=== PATIENT | female | born 1995 | race Caucasian/White ===

== ENCOUNTER 2017-09-30 10:47 | Outpatient (CLI) | payer BC ==
[2017-09-30 12:54] LABS: APPEARANCE,URINE SLIGHTLY-CLOUDY; BILIRUBIN,URINE NEGATIVE (NEGATIVE); COLOR,URINE YELLOW; GLUCOSE, URINE NEGATIVE (NEGATIVE); KETONES,URINE TRACE mg/dL (NEGATIVE); LEUKOCYTE ESTERASE,URINE MODERATE (NEGATIVE); NITRITE,URINE NEGATIVE (NEGATIVE); PROTEIN,URINE NEGATIVE (NEGATIVE); URINE SPECIFIC GRAVITY 1.006; UROBILINOGEN,URINE NEGATIVE mg/dL (<2.0)
[2017-09-30 13:15] LABS: URINE AMPHETAMINES SCREEN NEGATIVE; URINE BARBITURATES SCREEN NEGATIVE; URINE BENZODIAZEPINES SCREEN NEGATIVE; URINE COCAINE SCREEN NEGATIVE; URINE MARIJUANA (THC) SCREEN NEGATIVE; URINE METHADONE SCREEN NEGATIVE; URINE PHENCYCLIDINE SCREEN NEGATIVE
--- NOTE | 2017-09-30 13:28 | RADIOLOGY REPORT (SQ) ---
EXAM DESCRIPTION: U/S OB LIMITED COMPLETED DATE/TIME: 09/30/2017 1:01 pm REASON FOR STUDY: need cervical length, presentation, ANNY/SDP COMPARISON: None. TECHNIQUE: Limited transvaginal and transabdominal grayscale ultrasound for evaluation of specific r equested obstetrical parameters. LIMITATIONS: None. FINDINGS: CERVICAL LENGTH: 5.3 cm. Closed. ANNY: 16.4 cm. FHR: 133 beats per minute. PRESENTATION: Cephalic. OTHER: No other significant findings. IMPRESSION: LIMITED OBSTETRICAL ULTRASOUND WITH MEASURED PARAMETERS DELINEATED ABOVE. Trimester of : Third trimester - 28 weeks to delivery. TECHNICAL DOCUMENTATION: JOB ID: [id number] [employer]- All Rights Reserved Reading location - IP/workstation name: [email or web address]
== END 2017-09-30 13:21 | disposition home or self-care (01) ==
LOC: LC 10:47
PROVIDERS: ATTEND Student in an Organized Health Care Education/Training Program
PROC: 4A1HXCZ Monitoring of Products of Conception, Cardiac Rate, External Approach (ICD-10-PCS; principal; 2017-09-30)
DX: O24.419 Gestational diabetes mellitus in pregnancy, unspecified control (principal); Z3A.32 32 weeks gestation of pregnancy
CPT/HCPCS: 59025; 76815; 80307; 81001; 87086

== ENCOUNTER 2017-10-07 21:34 | Outpatient (CLI) | payer BC ==
--- NOTE | 2017-10-07 21:41 | Non Stress Test Report ---
Non Stress Test Datetime Report Generated by CPN: 10/07/2017 21:41 DEMOGRAPHIC EGA NST: 32.6 INDICATION Indication for Study: Ordered by Provider Indication for Study (NST) Other: GDM MONITORING Monitor Explained: Monitor Explained; Test Explained; Patient Verbalized Understanding Time on Monitor: 09/30/2017 11:11 Time off Monitor: 09/30/2017 12:36 NST Duration: 85 NST INTERVENTIONS NST Interventions: PO Hydration Physician Notified NST: Dr. Carbone BABY A: [id number] BABY A Movement : Present Contraction Frequency : 3-5 FHR Baseline : 135 Accelerations : 15X15 Decelerations : None Variability : Moderate 6-25bpm NST Review: Meets Criteria for Reactive NST NST Review and Verified By : Bandar Bellavancnydia RNC NST Results: Reactive NST REPORT Report Trigger: Send Report
[2017-10-07 22:17] LABS: APPEARANCE,URINE SLIGHTLY-CLOUDY; BILIRUBIN,URINE NEGATIVE (NEGATIVE); COLOR,URINE YELLOW; GLUCOSE, URINE NEGATIVE (NEGATIVE); KETONES,URINE NEGATIVE (NEGATIVE); LEUKOCYTE ESTERASE,URINE LARGE (NEGATIVE); NITRITE,URINE NEGATIVE (NEGATIVE); PROTEIN,URINE NEGATIVE (NEGATIVE); URINE SPECIFIC GRAVITY 1.009; UROBILINOGEN,URINE NEGATIVE mg/dL (<2.0)
[2017-10-07 22:24] LABS: URINE AMPHETAMINES SCREEN NEGATIVE; URINE BARBITURATES SCREEN NEGATIVE; URINE BENZODIAZEPINES SCREEN NEGATIVE; URINE COCAINE SCREEN NEGATIVE; URINE MARIJUANA (THC) SCREEN NEGATIVE; URINE METHADONE SCREEN NEGATIVE; URINE PHENCYCLIDINE SCREEN NEGATIVE
== END 2017-10-07 23:19 | disposition home or self-care (01) ==
LOC: LC 21:34
PROVIDERS: ATTEND Obstetrics & Gynecology Gynecology
PROC: 4A1HXCZ Monitoring of Products of Conception, Cardiac Rate, External Approach (ICD-10-PCS; principal; 2017-10-07)
DX: O24.419 Gestational diabetes mellitus in pregnancy, unspecified control (principal); Z3A.32 32 weeks gestation of pregnancy
CPT/HCPCS: 59025; 80307; 81001

== ENCOUNTER 2017-10-13 11:33 | Outpatient (CLI) | payer BC ==
--- NOTE | 2017-10-13 11:41 | Non Stress Test Report ---
Non Stress Test Datetime Report Generated by CPN: 10/13/2017 11:41 DEMOGRAPHIC EGA NST: 33.6 INDICATION Indication for Study: Ordered by Provider URINE RESULTS Urine Protein, NST: Negative Urine Ketones - NST: Negative Urine Glucose - NST: Negative Urine Blood - NST: Negative MONITORING Monitor Explained: Monitor Explained; Test Explained; Patient Verbalized Understanding Time on Monitor: 10/07/2017 21:51 Time off Monitor: 10/07/2017 23:13 NST Duration: 82 NST INTERVENTIONS NST Interventions: PO Hydration Physician Notified NST: Dr. Chew BABY A: [id number] BABY A Movement : Present Contraction Frequency : Occasional FHR Baseline : 125 Accelerations : 15X15 Decelerations : None Variability : Moderate 6-25bpm NST Review: Meets Criteria for Reactive NST NST Review and Verified By : Kaelyn Mejia RN NST Results: Reactive NST REPORT Report Trigger: Send Report
== END 2017-10-13 12:22 | disposition home or self-care (01) ==
LOC: LC 11:33
PROVIDERS: ATTEND Obstetrics & Gynecology Gynecology
PROC: 4A1HXCZ Monitoring of Products of Conception, Cardiac Rate, External Approach (ICD-10-PCS; principal; 2017-10-13)
DX: Z34.93 Encounter for supervision of normal pregnancy, unspecified, third trimester (principal)
CPT/HCPCS: 59025

== ENCOUNTER 2017-10-20 10:28 | Outpatient (CLI) | payer BC ==
--- NOTE | 2017-10-20 11:19 | Non Stress Test Report ---
Non Stress Test Datetime Report Generated by CPN: 10/20/2017 11:19 DEMOGRAPHIC EGA NST: 35.5 EGA NST: 34.5 INDICATION Indication for Study: Ordered by Provider Indication for Study: Diabetes Mellitus; Ordered by Provider Indication for Study (NST) Other: Repeat NST MONITORING Monitor Explained: Monitor Explained; Test Explained; Patient Verbalized Understanding Monitor Explained: Monitor Explained; Test Explained; Patient Verbalized Understanding Time on Monitor: 10/20/2017 10:46 Time on Monitor: 10/13/2017 11:45 Time off Monitor: 10/13/2017 11:14 Time off Monitor: 10/13/2017 12:10 NST Duration: -68029 NST Duration: 25 NST INTERVENTIONS NST Interventions: PO Hydration; Reposition Patient NST Interventions: PO Hydration; Reposition Patient Physician Notified NST: Tanja Thornton CNNacho Physician Notified NST: Wanda Macodnald CNM BABY A: [id number] BABY A Movement : Present Movement : Present Contraction Frequency : none Contraction Frequency : irregular FHR Baseline : 125 FHR Baseline : 130 Accelerations : 15X15 Accelerations : 15X15 Decelerations : None Decelerations : None Variability : Moderate 6-25bpm Variability : Moderate 6-25bpm NST Review: Meets Criteria for Reactive NST NST Review: Meets Criteria for Reactive NST NST Review and Verified By : Bandar Topete RNC NST Review and Verified By : April Abreu RN NST Results: Reactive NST Results: Reactive NST REPORT Report Trigger: Send Report
== END 2017-10-20 11:24 | disposition home or self-care (01) ==
LOC: LC 10:28
PROVIDERS: ATTEND Obstetrics & Gynecology Gynecology
PROC: 4A1HXCZ Monitoring of Products of Conception, Cardiac Rate, External Approach (ICD-10-PCS; principal; 2017-10-20)
DX: O24.415 Gestational diabetes mellitus in pregnancy, controlled by oral hypoglycemic drugs (principal); Z3A.35 35 weeks gestation of pregnancy
CPT/HCPCS: 59025

== ENCOUNTER 2017-10-27 14:35 | Outpatient (CLI) | payer BC ==
--- NOTE | 2017-10-27 15:09 | Non Stress Test Report ---
Non Stress Test Datetime Report Generated by CPN: 10/27/2017 15:09 DEMOGRAPHIC EGA NST: 36.5 MONITORING Monitor Explained: Monitor Explained; Test Explained; Patient Verbalized Understanding Time on Monitor: 10/27/2017 14:45 Time off Monitor: 10/27/2017 15:06 NST Duration: 21 NST INTERVENTIONS NST Interventions: PO Hydration; Reposition Patient Physician Notified NST: Penelope, CNNacho BABY A: [id number] BABY A Movement : Present Contraction Frequency : irregular FHR Baseline : 140 Accelerations : 15X15 Decelerations : None Variability : Moderate 6-25bpm NST Review: Meets Criteria for Reactive NST NST Review and Verified By : SUSANNE Leiva NST Results: Reactive NST REPORT Report Trigger: Send Report
== END 2017-10-27 15:08 | disposition home or self-care (01) ==
LOC: LC 14:35
PROVIDERS: ATTEND Obstetrics & Gynecology Gynecology
PROC: 4A1HXCZ Monitoring of Products of Conception, Cardiac Rate, External Approach (ICD-10-PCS; principal; 2017-10-27)
DX: O40.3XX0 Polyhydramnios, third trimester, not applicable or unspecified (principal); Z3A.36 36 weeks gestation of pregnancy
CPT/HCPCS: 59025

== ENCOUNTER 2017-11-03 11:15 | Outpatient (CLI) | payer BC ==
--- NOTE | 2017-11-03 12:18 | Non Stress Test Report ---
Non Stress Test Datetime Report Generated by CPN: 11/03/2017 12:18 DEMOGRAPHIC EGA NST: 37.5 INDICATION Indication for Study: Ordered by Provider VITAL SIGNS Temperature - NST: 98.2 RESP - NST: 18 NBPSYS NST: 127 NBPDIA NST: 74 MONITORING Monitor Explained: Monitor Explained; Test Explained; Patient Verbalized Understanding Time on Monitor: 11/03/2017 11:24 Time off Monitor: 11/03/2017 12:04 NST Duration: 40 NST INTERVENTIONS NST Interventions: PO Hydration; Reposition Patient Physician Notified NST: Dr Carbone BABY A: [id number] BABY A Movement : Present Contraction Frequency : irreg FHR Baseline : 130 Accelerations : 15X15 Decelerations : None Variability : Moderate 6-25bpm NST Review: Meets Criteria for Reactive NST NST Review and Verified By : Sallie berg RNC NST Results: Reactive NST REPORT Report Trigger: Send Report
== END 2017-11-03 12:06 | disposition home or self-care (01) ==
LOC: LC 11:15
PROVIDERS: ATTEND Student in an Organized Health Care Education/Training Program
PROC: 4A1HXCZ Monitoring of Products of Conception, Cardiac Rate, External Approach (ICD-10-PCS; principal; 2017-11-03)
DX: O47.1 False labor at or after 37 completed weeks of gestation (principal); Z3A.37 37 weeks gestation of pregnancy
CPT/HCPCS: 59025

== ENCOUNTER 2017-11-07 11:31 | Inpatient (IN) | payer BC ==
--- NOTE | 2017-11-07 12:33 | Admission Physical ---
Datetime Report Generated by CPN: 11/07/2017 12:32 CURRENT ADMISSION Chief Complaint: Signs/Symptoms Gestational HTN; Other Chief Complaint Other: A2DM Polyhydramnios Indication for Induction: Gestational HTN; Maternal Diabetes; Polyhydramnios Admit Impression : Term, Intrauterine ; Primary Section Admit Impression- Other: Macrosomia with EFW of >4800 grams w/ A2DM Admit Plan: Admit to Unit; Initiate Section Protocol ALLERGIES Medication Allergies: No Medication Allergies: No Known Allergies (11/03/2017) Latex: No Latex Allergies Food Allergies: none Environmental Allergies: none OBSTETRICAL HISTORY EDC: 11/19/2017 00:00 : 3 Para: 1 Term: 0 : 1 SAB: 1 IAB: 0 Ectopic: 0 Livin Cesareans: 0 VBACs: 0 Multiple Births: 0 Gestational Diabetes: Yes Rh Sensitization: No Incompetent Cervix: No MEGHAN: No Infertility: No ART Treatment: No Uterine Anomaly: No IUGR: No Hx Previous C/S: No Macrosomia: No Hx Loss/Stillborn: No PIH: No Placenta Previa/Abruption: Unknown Depression/PP Depression: No PTL/PROM: No Post Hemorrhage: No Current Procedures: Ultrasound; NST Obstetrical History Comments: -2015 26-30 wks IUFD triploidy G2- 2016 SAB G3- Current - GDM (Annotations: Data stored by N on behalf of user) SEE RECORDS Alcohol: No Marijuana : No Cocaine: No Other Illicit Drugs: No Cigarettes: Never Smoker. [id number] MEDICAL HISTORY Diabetes: Yes Diabetes Type: Gestational Diabetes Blood Transfusion: No Pulmonary Disease (Asthma, TB): No Breast Disease: No Hypertension: No Tail Trimmer Surgery: No Heart Disease: No Hosp/Surgery: Yes Autoimmune Disorder: No Anesthetic Complications: No Kidney Disease: No Abnormal Pap Smear: No Neuro/Epilepsy: No Psychiatric Disorders: No Other Medical Diseases: No Hepatitis/Liver Disease: No Significant Family History: No Varicosities/Phlebitis: No Trauma/Violence : No Thyroid Dysfunction: No Medical History Comments: Rhinoplasty- 2006, hosp IUFD 2016 INFECTIOUS HISTORY Gonorrhea: No Genital Herpes: No Chlamydia: No Syphilis: No Hepatitis: No HIV/AIDS Exposure: No Rash or Viral Illness: No HPV: No PHYSICAL EXAM General: Normal HEENT: Normal Neurologic: Normal Thyroid: Normal Heart: Normal Lungs: Normal Breast: Normal Back: Normal Abdomen: Normal Genitourinary Exam: Normal Extremities: Normal DTRs: Normal Pelvic Type: Adequate Vital Signs: Reviewed VAGINAL EXAM Dilatation: 0 Effacement: 0 Station: 0 MEMBRANES Pooling: Negative Membranes: Intact FETUS A EGA: 38.2 Monitoring: External US FHR- Baseline: 145 Variability: Moderate 6-25bpm Accelerations: 15X15 FHR Category: Category I Estimated Weight (gm): 4873 Presentation: Vertex Admit Comment: patient sent from [facility] w/ reported bps of 148/98 and repeat of 146/102. Patient scheduled for primary c/section due to macrosomia. Will proceed with c/section today in light of GHTN vs PreE. Assess for need for Mag Sulfate after delivery PLANS FOR LABOR AND DELIVERY Labor and Delivery: None Pain Management: Spinal Other Pain Management Plans: Feeding Preference: Breast Circumcision: N/A INFORMED CONSENT Signature: with User ID: [email or web address]
[2017-11-07] MEDS ORDERED: RINGERS SOLUTION,LACTATED 300 ML IV ONE (12:38)
[2017-11-07] MEDS ORDERED: CITRIC ACID/SODIUM CITRATE ORAL SOLN 15 ML UDCUP ONE (12:42)
[2017-11-07] MEDS ORDERED: CEFAZOLIN 1 GM/D5W RTU 0 GM/0 ML RTUPB IV ONE (12:44)
[2017-11-07] MEDS ORDERED: CEFAZOLIN SODIUM 2 GM in DEXTROSE 5%-WATER 50 ML IV PRN (13:00)
[2017-11-07 13:15] LABS: AMORPHOUS SEDIMENT,URINE TRACE /HPF; APPEARANCE,URINE CLOUDY; BILIRUBIN,URINE NEGATIVE (NEGATIVE); COLOR,URINE YELLOW; GLUCOSE, URINE NEGATIVE (NEGATIVE); KETONES,URINE NEGATIVE (NEGATIVE); LEUKOCYTE ESTERASE,URINE MODERATE (NEGATIVE); NITRITE,URINE NEGATIVE (NEGATIVE); PROTEIN,URINE NEGATIVE (NEGATIVE); URINE SPECIFIC GRAVITY 1.008; UROBILINOGEN,URINE NEGATIVE mg/dL (<2.0)
[2017-11-07 13:21] LABS: ABSOLUTE LYMPHOCYTES (AUTO) 1.3 10^3/uL (0.5-4.7); ABSOLUTE MONOCYTES (AUTO) 0.7 10^3/uL (0.1-1.4); ABSOLUTE NEUT (AUTO) 5.6 10^3/uL (1.7-8.2); BASOPHILS % (AUTO) 0.2 % (0-2); EOSINOPHILS % (AUTO) 0.3 % (0-6); HEMATOCRIT 30.9 % (36.0-47.0); HEMOGLOBIN 10.8 g/dL (12.0-15.5); LYMPHOCYTES % (AUTO) 16.9 % (13-45); MEAN CORPUSCULAR HEMOGLOBIN 28.1 pg (27.0-33.4); MEAN CORPUSCULAR HGB CONC 34.8 g/dL (32.0-36.0); MEAN CORPUSCULAR VOLUME 81 fl (80-97); MONOCYTES % (AUTO) 9.2 % (3-13); PLATELET COUNT 187 10^3/uL (150-450); RED BLOOD COUNT 3.82 10^6/uL (3.72-5.28); RED CELL DISTRIBUTION WIDTH 13.5 % (11.5-14.0); SEGMENTED NEUTROPHILS % (AUTO) 73.4 % (42-78); TOTAL CELLS COUNTED % (AUTO) 100 %; WHITE BLOOD COUNT 7.6 10^3/uL (4.0-10.5)
[2017-11-07] MEDS: RINGERS SOLUTION,LACTATED 1,000 ML IV PRN ×2 (13:26→21:24)
[2017-11-07 13:32] LABS: URINE AMPHETAMINES SCREEN NEGATIVE; URINE BARBITURATES SCREEN NEGATIVE; URINE BENZODIAZEPINES SCREEN NEGATIVE; URINE COCAINE SCREEN NEGATIVE; URINE MARIJUANA (THC) SCREEN NEGATIVE; URINE METHADONE SCREEN NEGATIVE; URINE PHENCYCLIDINE SCREEN NEGATIVE
[2017-11-07 13:43] LABS: ALANINE AMINOTRANSFERASE 17 U/L (9-52); ALBUMIN 3.2 g/dL (3.5-5.0); ALKALINE PHOSPHATASE 123 U/L (38-126); ANION GAP 11 (5-19); ASPARTATE AMINO TRANSFERASE 15 U/L (14-36); BILIRUBIN,DIRECT 0.2 mg/dL (0.0-0.4); BILIRUBIN,TOTAL 0.3 mg/dL (0.2-1.3); BLOOD UREA NITROGEN 6 mg/dL (7-20); CALCIUM 9.2 mg/dL (8.4-10.2); CARBON DIOXIDE 20 mmol/L (22-30); CHLORIDE 110 mmol/L (98-107); GLUCOSE 71 mg/dL (75-110); POTASSIUM 3.8 mmol/L (3.6-5.0); SODIUM 140.6 mmol/L (137-145); TOTAL PROTEIN 6.3 g/dL (6.3-8.2); URIC ACID 6.2 mg/dL (2.5-6.2)
[2017-11-07] MEDS ORDERED: OXYTOCIN 10 UNIT/ML VIAL ONE (13:50)
[2017-11-07] MEDS ORDERED: EPHEDRINE SULFATE INJ 50 MG/1 ML AMPULE ONE (13:50)
[2017-11-07] MEDS ORDERED: PROPOFOL INJ 200 MG/20 ML VIAL IV ONE (13:50)
[2017-11-07] MEDS ORDERED: FENTANYL CITRATE INJ/PF 100 MCG/2 ML AMPUL ONE (13:50)
[2017-11-07] MEDS ORDERED: BUPIVACAINE HCL/DEX-WATER/PF 15 MG/2 ML AMPULE ONE (13:51)
[2017-11-07] MEDS ORDERED: MIDAZOLAM 2 MG/2 ML INJ ONE (13:51)
[2017-11-07 13:57] LABS: UR PRO/CREAT RATIO RESULT 0.2 mg/mg (0.0-0.2); URINE CREATININE 84.8 mg/dL (16-327); URINE PROTEIN 18.2 mg/dL (<12)
[2017-11-07] MEDS ORDERED: FENTANYL CITRATE INJ/PF 100 MCG/2 ML AMPUL IV PRN ×3 (14:29)
[2017-11-07] MEDS ORDERED: MEPERIDINE HCL/PF INJ 25 MG/1 ML DISP.SYRIN IV PRN (14:29)
[2017-11-07] MEDS ORDERED: DIPHENHYDRAMINE HCL 50 MG/ML VIAL IV PRN (14:29)
[2017-11-07] MEDS ORDERED: PROMETHAZINE HCL INJ 25 MG/1 ML VIAL IV PRN ×2 (14:29→15:11)
[2017-11-07] MEDS ORDERED: RINGERS SOLUTION,LACTATED 1,000 ML IV PRN (15:11)
[2017-11-07] MEDS ORDERED: ACETAMINOPHEN 325 MG TABLET PO PRN (15:11)
[2017-11-07] MEDS ORDERED: OXYCODONE-ACETAMINOPHEN 5-325 MG TABLET PO PRN (15:11)
[2017-11-07] MEDS ORDERED: MEASLES,MUMPS&RUBELLA VACC/PF 0.5 ML VIAL SUBCUT PRN (15:11)
[2017-11-07] MEDS ORDERED: SIMETHICONE 80 MG TAB.CHEW PO PRN (15:11)
[2017-11-07] MEDS ORDERED: DIPH/PERTUSS(ACELL)/TETANUS VAC/PF 0.5 ML SYR (>=10YO) IM PRN (15:11)
[2017-11-07] MEDS ORDERED: OXYTOCIN/NORMAL SALINE 20 UNIT/1,000 ML RTUINJ IV PRN (15:11)
[2017-11-07] MEDS ORDERED: ACETAMINOPHEN 1,000 MG/100 ML RTUPB IV PRN (15:11)
[2017-11-07] MEDS ORDERED: MORPHINE SULFATE 10 MG/ML INJ IV PRN (15:11)
--- NOTE | 2017-11-07 15:22 | PDOC DELIVERY SUMMARY ---
Delivery Summary - Maternal Hx : III Hx Para: 0 Hx # Term Pregnancies: 1 Hx # Pregnancies: 1 Gestational Age: 38.2 Risk Factors: Gestational Diabetes, Induced HTN, Polyhydramnios Risk Factors/Complications Other:: macrosomia Ruptured Membranes: AROM Fluids: Clear, Poly Hydramnios - Delivery Labor: Not In Labor Presentation: Vertex Heart Rate Monitoring: Done Pre-Operatively Support Person Present: Yes Location: OR : Primary Placenta: Within Normal Limits Number of Vessels (Cord): 3 Nuchal Cord: No Delivery of Placenta Date: 11/07/17 Delivery of Placenta Time: 14:27 - Medications Type of Anesthesia:: Spinal - Delivery Personnel Stone Polisher Machine: GERRI COX MD: ANSHUL SIMMS
[2017-11-07] MEDS ORDERED: OXYTOCIN/NORMAL SALINE 20 UNIT/1,000 ML RTUINJ ONE (16:03)
--- NOTE | 2017-11-07 17:30 | Delivery Summary ---
Del Sum A-C Datetime Report Generated by CPN: 11/07/2017 17:30 DELIVERY PERSONNEL DELIVERY PERSONNEL: [id number] Delivery Doctor:: Shadia Gould MD Anesthesiologist:: Anuj Fonseca MD LIFE SKILLS INSTRUCTOR:: Hien Duenas CRNA Labor and Delivery Nurse:: Marla Baumann RN Public Relations Consultant:: Marla Baumann RN Electronic Commerce Specialist:: Dr. Stanley Harden Nursery Nurse:: Malka Mays RN Nursery Nurse:: Vicky Trevino RN Market Research Specialist/ELEMENTARY SPANISH TEACHER: Wanda Bae CST Market Research Specialist/ELEMENTARY SPANISH TEACHER: Danae Ugalde, ST MATERNAL INFORMATION Delivery Anesthesia: Spinal Medications After Delivery: Pitocin Bolus-Please Comment; Pitocin Drip 20 Units/1000ml NSS Maternal Complications: None LABOR SUMMARY EDC: 11/19/2017 00:00 No. Babies in Womb: 1 Attempted: No Labor Anesthesia: None LABOR INFORMATION Group B Beta Strep: negative Steroids Given: None Reason Steroids Not Administered: Not Applicable STAGES OF LABOR Stage 3 hr: 0 Stage 3 min: 0 CSECTION DELIVERY Primary Indication: Other Other Primary Indication: SUSPECTED MACROSOMIA Secondary Indication: N/A CSection Urgency: Non-Scheduled CSection Incidence: Primary Labor: No Labor Elective: Nonelective CSection Incision: Lower Uterine Transverse BABY A INFORMATION Delivery Date/Time: 11/07/2017 14:21 Method of Delivery: Born in Route : No : N/A Forceps: N/A Vacuum Extraction: Successful Shoulder Dystocia : No PRESENTATION/POSITION BABY A Presentation: Cephalic Cephalic Presentation: Vertex Breech Presentation: N/A PLACENTA INFORMATION BABY A Placenta Delivery Time : 11/07/2017 14:21 Placenta Method of Delivery: Manual Removal Placenta Status: Delivered SCORES BABY A Heart Rate 1 min: >100 bpm Resp Effort 1 min: Good Cry Reflex Irritability 1 min: Cough or Sneeze or Pulls Away Muscle Tone 1 min: Some Flexion of Extremities Color 1 min: Blue/Pale Resuscitation Effort 1 min: Tactile Stimulation SCORE 1 MIN: 7 Heart Rate 5 min: >100 bpm Resp Effort 5 min: Good Cry Reflex Irritability 5 min: Cough or Sneeze or Pulls Away Muscle Tone 5 min: Active Motion Color 5 min: Body Jacobus, Extremities Blue Resuscitation Effort 5 min: Tactile Stimulation SCORE 5 MIN: 9 INFORMATION BABY A Gestational Age at Delivery: 38.2 Gestational Status: Early Term- 37- 38.6 Weeks Infant Outcome : Liveborn Condition : Stable Infant Sex: Female IDENTIFICATION BABY A Infant Verification Date/Time: 11/07/2017 14:25 ID Band Number: [id number] Mother's Name Verified: Yes RN Verifying Infant: , RN Additional Verifying Personnel: Dari SPOOL FIXER WEIGHT/LENGTH BABY A Infant Birthweight (gm): 4020 Weight (lb): 8 Weight (oz): 14 Infant Length (in): 20.75 Infant Length (cm): 52.71 CORD INFORMATION BABY A No. Cord Vessels: 3 Nuchal Cord : N/A Cord Blood Taken: Yes-For Storage (Mom's Blood type +) ASSESSMENT BABY A Skin to Skin: No BABY B INFORMATION : N/A
[2017-11-07] MEDS: DOCUSATE SODIUM 100 MG CAPSULE PO SCH (17:35)
[2017-11-07] MEDS: IBUPROFEN 800 MG TABLET PO SCH ×2 (17:39→23:29)
[2017-11-07] MEDS: OXYCODONE-ACETAMINOPHEN 5-325 MG TABLET PO PRN ×2 (18:11→23:31)
[2017-11-07] MEDS: KETOROLAC TROMETHAMINE INJ/PF 30 MG/1 ML SDV IV SCH (21:16)
[2017-11-08] MEDS: OXYCODONE-ACETAMINOPHEN 5-325 MG TABLET PO PRN ×3 (04:04→17:50)
[2017-11-08] MEDS: KETOROLAC TROMETHAMINE INJ/PF 30 MG/1 ML SDV IV SCH ×2 (05:13→13:04)
[2017-11-08 06:11] LABS: HEMATOCRIT 23.3 % (36.0-47.0); MEAN CORPUSCULAR HEMOGLOBIN 27.8 pg (27.0-33.4); MEAN CORPUSCULAR HGB CONC 33.8 g/dL (32.0-36.0); MEAN CORPUSCULAR VOLUME 82 fl (80-97); PLATELET COUNT 128 10^3/uL (150-450); RED BLOOD COUNT 2.84 10^6/uL (3.72-5.28); RED CELL DISTRIBUTION WIDTH 13.6 % (11.5-14.0); WHITE BLOOD COUNT 6.3 10^3/uL (4.0-10.5)
[2017-11-08 06:38] LABS: HEMOGLOBIN 7.9 g/dL (12.0-15.5)
[2017-11-08] MEDS: IBUPROFEN 800 MG TABLET PO SCH ×4 (07:24→17:49)
--- NOTE | 2017-11-08 09:15 | PDOC PROGRESS REPORT ---
Subjective-OB Progress Note for:: 11/08/17 Physical Exam (OB) Vital Signs: Temp Pulse Resp BP Pulse Ox 97.9 F 92 17 128/75 H 98 11/08/17 07:35 11/08/17 07:35 11/08/17 07:35 11/08/17 07:35 11/08/17 07:35 Intake & Output 11/07/17 11/08/17 11/09/17 06:59 06:59 06:59 Intake Total 2375 Output Total 1350 Balance 1025 Weight 103.6 kg - PIH/Pre-Eclampsia DTR's: 1 + Clonus: Negative Headache: Absent Epigastric Pain: No Visual Changes: No - Dressing Removed: No - opsite in place Incision: Dressing, Draining - Lochia Lochia Amount: Small 10-25 ml Lochia Color: Rubra/Red - Abdomen Description: Tender, Soft, Round Hernia Present: No Bowel Sounds: Normoactive Flatus Presence: Present Stool: No Fundal Description: Firm, Midline Fundal Height: u/u - u/2 Objective-Diagnostic Laboratory: 11/08/17 05:44 11/07/17 13:05 11/07/17 11/07/17 11/07/17 11:55 13:05 13:05 WBC 7.6 RBC 3.82 Hgb 10.8 L Hct 30.9 L MCV 81 MCH 28.1 MCHC 34.8 RDW 13.5 Plt Count 187 Seg Neutrophils % 73.4 Lymphocytes % 16.9 Monocytes % 9.2 Eosinophils % 0.3 Basophils % 0.2 Absolute Neutrophils 5.6 Absolute Lymphocytes 1.3 Absolute Monocytes 0.7 Absolute Eosinophils 0.0 Absolute Basophils 0.0 Sodium 140.6 Potassium 3.8 Chloride 110 H Carbon Dioxide 20 L Anion Gap 11 BUN 6 L Creatinine 0.72 Est GFR ( Amer) > 60 Est GFR (Non-Af Amer) > 60 Glucose 71 L Uric Acid 6.2 Calcium 9.2 Total Bilirubin 0.3 AST 15 ALT 17 Alkaline Phosphatase 123 Total Protein 6.3 Albumin 3.2 L Urine Color YELLOW Urine Appearance CLOUDY Urine pH 7.0 Ur Specific [place] 1.008 Urine Protein NEGATIVE Urine Glucose (UA) NEGATIVE Urine Ketones NEGATIVE Urine Blood NEGATIVE Urine Nitrite NEGATIVE Ur Leukocyte Esterase MODERATE H Urine WBC (Auto) 10 Urine RBC (Auto) 3 Blood Type Antibody Screen 07/16/18 07/17/18 13:05 05:44 WBC 6.3 RBC 2.84 L Hgb 7.9 L D Hct 23.3 L MCV 82 MCH 27.8 MCHC 33.8 RDW 13.6 Plt Count 128 L Seg Neutrophils % Lymphocytes % Monocytes % Eosinophils % Basophils % Absolute Neutrophils Absolute Lymphocytes Absolute Monocytes Absolute Eosinophils Absolute Basophils Sodium Potassium Chloride Carbon Dioxide Anion Gap BUN Creatinine Est GFR ( Amer) Est GFR (Non-Af Amer) Glucose Uric Acid Calcium Total Bilirubin AST ALT Alkaline Phosphatase Total Protein Albumin Urine Color Urine Appearance Urine pH Ur Specific [place] Urine Protein Urine Glucose (UA) Urine Ketones Urine Blood Urine Nitrite Ur Leukocyte Esterase Urine WBC (Auto) Urine RBC (Auto) Blood Type AB POSITIVE Antibody Screen NEGATIVE
[2017-11-08] MEDS: PRENATAL VITAMIN W DHA CAPSULE PO SCH (10:42)
[2017-11-08] MEDS: DOCUSATE SODIUM 100 MG CAPSULE PO SCH ×2 (10:43→17:49)
[2017-11-09] MEDS: IBUPROFEN 800 MG TABLET PO SCH ×2 (00:08→05:37)
[2017-11-09] MEDS: OXYCODONE-ACETAMINOPHEN 5-325 MG TABLET PO PRN (00:09)
[2017-11-09] MEDS: DOCUSATE SODIUM 100 MG CAPSULE PO SCH (09:00)
[2017-11-09] MEDS: PRENATAL VITAMIN W DHA CAPSULE PO SCH (09:00)
--- NOTE | 2017-11-09 10:05 | PDOC DISCHARGE SUMMARY ---
Final Diagnosis Discharge Date: 11/09/17 - Final Diagnosis (1) GDM (gestational diabetes mellitus) Is this a current diagnosis for this admission?: Yes (2) Gestational hypertension Is this a current diagnosis for this admission?: Yes (3) Status post primary low transverse section Is this a current diagnosis for this admission?: Yes Discharge Data - Discharge Medication Prescriptions: Ferrous Sulfate [Iron] 325 mg PO BID #60 tablet Ibuprofen [Motrin 800 mg Tablet] 800 mg PO Q8HP PRN #60 tablet PRN Reason: Oxycodone HCl/Acetaminophen [Percocet 5-325 mg Tablet] 1 tab PO Q4HP PRN #20 tablet PRN Reason: Home Medications: Vit/Iron Fum/Folic AC [ Tablet] 1 each PO DAILY 09/30/17 Ferrous Sulfate [Iron] 325 mg PO BID #60 tablet 11/09/17 Ibuprofen [Motrin 800 mg Tablet] 800 mg PO Q8HP PRN #60 tablet 11/09/17 Oxycodone HCl/Acetaminophen [Percocet 5-325 mg Tablet] 1 tab PO Q4HP PRN #20 tablet 11/09/17 Procedures: NST Intrapartum Procedure(s): : Low Cervical, Transverse - Diagnosis Test Laboratory: Temp Pulse Resp BP Pulse Ox 97.8 F 93 20 139/84 H 98 11/09/17 08:39 11/09/17 08:39 11/09/17 08:39 11/09/17 08:39 11/09/17 08:39 11/07/17 11/07/17 11/08/17 11:55 13:05 05:44 RBC 3.82 2.84 L Hgb 10.8 L 7.9 L D Hct 30.9 L 23.3 L Urine Opiates Screen NEGATIVE - Discharge information/Instructions Discharge Activity: Balance Activity w/Rest, No Lifting/Push/Pulling, Pelvic Rest, No tub bath Discharge Diet: Regular Disposition: HOME, SELF-CARE Follow up with: [facility] in: 1, Weeks
--- NOTE | 2017-11-09 10:36 | PDOC PROGRESS REPORT ---
Subjective-OB Progress Note for:: 11/09/17 Subjective: tolerating diet, well, pain controlled with current meds, bleeding slowing, denies LANG, SOB, dizziness, near syncope; agrees with plan to go home on iron po Physical Exam (OB) Vital Signs: Temp Pulse Resp BP Pulse Ox 97.8 F 93 20 139/84 H 98 11/09/17 08:39 11/09/17 08:39 11/09/17 08:39 11/09/17 08:39 11/09/17 08:39 Intake & Output 11/08/17 11/09/17 11/10/17 06:59 06:59 06:59 Intake Total 2375 2000 Output Total 1350 900 Balance 1025 1100 Weight 103.6 kg - PIH/Pre-Eclampsia DTR's: 1 + Clonus: Negative Headache: Absent Epigastric Pain: No Visual Changes: No - Dressing Removed: - opsite Incision: Dressing, Well Approximated - clean, dry, intact Closure Type: OP Site - Abdomen Description: Soft, Round Hernia Present: No Fundal Description: Firm, Midline Fundal Height: u/u - u/2 - Abdominal Inspection: Normal Tenderness: Nontender - Extremities Lower extremities: Izaiah's sign - neg Calf: Normal, Nontender Objective-Diagnostic Laboratory: 11/08/17 05:44 11/07/17 13:05 Assessment and Plan(PN) - Assessment and Plan (1) GDM (gestational diabetes mellitus) Is this a current diagnosis for this admission?: Yes (2) Gestational hypertension Is this a current diagnosis for this admission?: Yes (3) Status post primary low transverse section Is this a current diagnosis for this admission?: Yes - Time Spent with Patient Time with patient: Less than 15 minutes - Disposition Anticipated Discharge: Home Within: Other - today
[2017-11-09 13:20] VITALS: BP 135/80
--- NOTE | 2017-11-13 14:00 | OPERATIVE REPORT E ---
Operative Report NAME: LAUREN MALAGON : 1995 AGE: 22Y DATE OF SURGERY: 11/07/2017 ROOM: 222 PREOPERATIVE DIAGNOSES: 1. IUP at 38 weeks and 2 days. 2. Suspected macrosomia. 3. A2 diabetes. 4. Gestational hypertension. 5. Polyhydramnios. POSTOPERATIVE DIAGNOSES: 1. IUP at 38 weeks and 2 days. 2. Suspected macrosomia. 3. A2 diabetes. 4. Gestational hypertension. 5. Polyhydramnios. PROCEDURE: Primary low-transverse hysterotomy section. SURGEON: ANSHUL SIMMS MD ANESTHESIOLOGIST: ROM ETIENNE MD ANESTHESIA: Spinal. FINDINGS: Female in cephalic presentation with weight of 8 pounds 14 ounces, Apgars of 7 and 9. ESTIMATED BLOOD LOSS: 1000 mL. PROCEDURE IN DETAIL: The patient was taken to the operating room, prepared and draped in the normal sterile fashion in a supine position with a leftward tilt. A transverse skin incision was made with a scalpel and carried through to the underlying layer of fascia with the same scalpel. The fascia was excised in the midline and extended laterally with Mayos. The fascia was dissected from the rectus muscle sharply and the rectus muscle was divided. The peritoneal cavity was entered bluntly with surgeon finger fracture. The bladder blade was inserted with good visualization of the bladder and the uterus. The hysterotomy was nicked with a scalpel and extended laterally with surgeon finger fracture. The infant was then delivered atraumatically. The nose and mouth were suctioned with a suction bulb and the cord was clamped and cut, and the infant was handed off to waiting case manager. The cord blood was collected and the placenta was removed manually. The uterus was exteriorized and cleared of clots and debris. The hysterotomy was closed with 0-Monocryl in a running, locked fashion. The second layer of the same suture was used to imbricate to ensure hemostasis. The uterus was returned to the abdomen and peritoneal cavity was cleared of clots and debris. The rectus muscle, fascia and peritoneum were reapproximated with a mattress suture of 2-0 Chromic. The fascia was closed with 0-Vicryl. The subcutaneous layer was closed with plain catgut and the skin was closed with 4-0 Vicryl. The patient tolerated the procedure well. Sponge, lap, and needle counts were correct x2 and the patient was taken to recovery in a stable condition. DICTATING PHYSICIAN: ANSHUL SIMMS M.D. [id number] PHY#: [id number] ID: [id number] JOB#: [id number] ACCT: [id number] cc:ANSHUL SIMMS M.D. >
== END 2017-11-09 13:45 | disposition home or self-care (01) | DRG 765 ==
LOC: LC 11:31 → LR 11:41 → 2S 17:21
PROVIDERS: ADMIT Obstetrics & Gynecology; ATTEND Obstetrics & Gynecology
PROC: 10D00Z1 Extraction of Products of Conception, Low, Open Approach (ICD-10-PCS; principal; 2017-11-07)
PROC: 4A1HXCZ Monitoring of Products of Conception, Cardiac Rate, External Approach (ICD-10-PCS; 2017-11-07)
DX: O24.429 Gestational diabetes mellitus in childbirth, unspecified control (principal); O40.3XX0 Polyhydramnios, third trimester, not applicable or unspecified; O13.4 Gestational [pregnancy-induced] hypertension without significant proteinuria, complicating childbirth; O36.63X0 Maternal care for excessive fetal growth, third trimester, not applicable or unspecified; Z3A.38 38 weeks gestation of pregnancy; Z37.0 Single live birth
CPT/HCPCS: 1961; 36415; 80053; 80307; 81001; 82570; 83615; 84156; 84550; 85025; 85027; 86850; 86900; 86901; 88307; 94799; J0690; J1885; J2250; J2270; J2550; J2590; J2704; J3010; J3490; J7120